=== PATIENT | female | born 1950 | race Caucasian/White ===

== ENCOUNTER → 2024-08-12 11:21 | Outpatient (BNVA) | payer MEDICARE, OTHER, SELFPAY | PROVIDERS: Visit Provider Nurse Practitioner Family | DX: Z79.899 Other long term (current) drug therapy (principal); Z98.890 Other specified postprocedural states; E55.9 Vitamin D deficiency, unspecified; D64.9 Anemia, unspecified; Z13.6 Encounter for screening for cardiovascular disorders; M54.50 Low back pain, unspecified | CPT/HCPCS: 80053; 80061; 81003; 82306; 82607; 82728; 82746; 83036; 83550; 84443; 85025 ==

== ENCOUNTER 2024-08-30 11:41 | Outpatient (CLI) | payer MEDICARE, OTHER, SELFPAY ==
--- NOTE | 2024-08-30 12:00 | CTR_ITS ---
PROCEDURE INFORMATION: Exam: CT Lumbar Spine Without Contrast Exam date and time: 08/30/2024 12:02 PM Age: 73 years old Clinical indication: Sciatica; Prior surgery; Surgery date: 6+ months; Surgery type: RT hip, back x 2; Right side buttock pain x 2 months; Additional info: M54.31 - sciatica, right side, PT is unable to do an mri due to having previous hip TECHNIQUE: Imaging protocol: Computed tomography of the lumbar spine without contrast. Radiation optimization: All CT scans at this facility use at least one of these dose optimization techniques: automated exposure control; mA and/or kV adjustment per patient size (includes targeted exams where dose is matched to clinical indication); or iterative reconstruction. COMPARISON: No relevant prior studies available. RADIATION DOSE METRICS: Total DLP (mGy-cm): 796.82 FINDINGS: Bones/joints: No acute displaced fracture or traumatic malalignment. Multilevel spondylosis, degenerative disc changes, and facet arthropathy. T12-L1: Degenerative disc changes and posterior disc osteophyte complex and central disc protrusion. Mild facet arthropathy. No significant spinal canal narrowing. The neural foramina are patent bilaterally. L1-L2: Degenerative disc changes with mild posterior disc osteophyte complex. Facet arthropathy. [id number]-[id number] bony spinal canal narrowing. Moderate right neural foraminal narrowing. Moderate to severe left neural foraminal narrowing. L2-L3: Degenerative disc changes and posterior disc osteophyte complex. Moderate facet arthropathy. Moderate bony spinal canal narrowing. The right neural foramina is patent. Very mild left-sided neural foraminal narrowing. L3-L4: Degenerative disc changes with posterior disc osteophyte complex. Moderate facet arthropathy. Moderate bony spinal canal narrowing. Mild right-sided neural foraminal narrowing. Moderate left-sided neural foraminal narrowing. L4-L5: Degenerative disc changes advanced facet arthropathy. No high-grade bony spinal canal narrowing. The right neural foramina is patent. [id number] left neural foraminal narrowing. L5-S1: Degenerative disc changes and severe facet arthropathy. No high-grade bony spinal canal narrowing. Moderate to severe left and [id number] right bony neural foraminal narrowing. Soft tissues: Unremarkable. CT/CT lumbar spine wo con* [id number] IMPRESSION: No acute lumbar spine fracture. Multilevel degenerative changes of the lumbar spine which results in varying degrees of neural foraminal narrowing most prominent on the left at L1-L2 and on the left at L5-S1. Varying degrees of bony spinal canal narrowing most prominent at L3-L4 and L2-L3 where it is moderate.
== END 2024-08-30 11:42 | disposition home or self-care (01) ==
LOC: RAD 11:42
PROVIDERS: PCP Nurse Practitioner Family; Visit Provider Nurse Practitioner Family
DX: M54.31 Sciatica, right side (principal); Z98.890 Other specified postprocedural states; M51.369 Other intervertebral disc degeneration, lumbar region without mention of lumbar back pain or lower extremity pain; M48.061 Spinal stenosis, lumbar region without neurogenic claudication; M51.35 Other intervertebral disc degeneration, thoracolumbar region; M25.78 Osteophyte, vertebrae; M51.25 Other intervertebral disc displacement, thoracolumbar region; M47.896 Other spondylosis, lumbar region; M51.379 Other intervertebral disc degeneration, lumbosacral region without mention of lumbar back pain or lower extremity pain; M47.897 Other spondylosis, lumbosacral region; M48.07 Spinal stenosis, lumbosacral region
CPT/HCPCS: 72131